=== PATIENT | female | born 2005 ===

== ENCOUNTER 2025-07-24 14:58 | Inpatient (IN) ==
[2025-07-24] MEDS: LACTATED RINGER'S 1,000 ML IV PRN (16:25)
[2025-07-24 16:32] LABS: Appearance Urine Clear (Clear); Bacteria Urine Automated None Seen (None Seen); Cast Urine Automated 0-2 /lpf (0-2); Epithelial Cell Urine Auto 0-2 /hpf (0-2); Glucose Urine UA Negative (Negative); RBC Urine Automated 0-2 /hpf (0-2); WBC Urine Automated 0-5 /hpf (0-5)
[2025-07-24 16:39] LABS: Hematocrit (blood only) 33.4 % (37.0-47.0); Hemoglobin 11.5 g/dL (12.0-16.0); Immature Granulocytes # (auto) 0.04 K/uL (0.01-0.20); Immature Granulocytes % (auto) 0.5 %; Mean Corpuscular Hemoglobin 32.2 pg (25.0-34.0); Mean Corpuscular Volume 93.6 fL (80.0-100.0); Platelet Count 106 K/uL (130-400); RDW Standard Deviation 51.8 fL (36.4-46.3); Red Blood Count 3.57 M/uL (4.20-5.40); White Blood Count 8.85 K/ul (4.8-10.8)
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
[2025-07-24 17:27] LABS: Amphetamines+Metham, Urine Neg (Neg); MDMA (Ecstacy), Urine Neg (Neg); Marijuana, Urine Neg (Neg)
[2025-07-24] MEDS ORDERED: ACETAMINOPHEN 1,000 MG/100 ML VIAL IV PRN (19:19)
[2025-07-24] MEDS: ACETAMINOPHEN 1000 MG/100 ML IV IV ONE (19:23)
[2025-07-24] MEDS ORDERED: OXYTOCIN 30 UNITS/NSS 30 UNITS/500 ML BAG IV PRN (21:14)
[2025-07-24] MEDS ORDERED: LIDOCAINE 1% LOCAL 20 ML VIAL INFIL PRN (21:14)
[2025-07-24] MEDS: OXYTOCIN 30 UNITS/NSS 30 UNITS/500 ML BAG IV PRN (23:10)
[2025-07-24] MEDS ORDERED: ROPIVACAINE 0.5% PF 5 MG/ML 20 ML VIAL EPI PRN (23:36)
[2025-07-24] MEDS ORDERED: diphenhydrAMINE 50 MG/ML VIAL IV PRN (23:36)
[2025-07-24] MEDS ORDERED: LIDOCAINE 2% MPF LOCAL 5 ML VIAL EPI PRN (23:36)
[2025-07-24] MEDS ORDERED: NALOXONE HCL 1 MG in SODIUM CHLORIDE 0.9% 1,000 ML IV PRN (23:36)
[2025-07-24] MEDS ORDERED: NALOXONE HCL 0.4 MG/1 ML VIAL/CARP IV PRN (23:36)
[2025-07-24] MEDS ORDERED: fentANYL 2 MCG/ML BUPIVacaine 0.125%-NSS 100ML BAG EPI PRN (23:36)
[2025-07-24] MEDS ORDERED: NALBUPHINE HCL INJ 10 MG/ML AMP IV PRN (23:36)
[2025-07-24] MEDS ORDERED: BUPIVACAINE 0.25% PF 30 ML VIAL EPI PRN (23:36)
[2025-07-24] MEDS ORDERED: SODIUM CHLORIDE 0.9% PF INJ 10 ML VIAL EPI PRN (23:36)
[2025-07-24] MEDS ORDERED: ONDANSETRON INJ 2 MG/ML 2 ML VIAL IV PRN (23:36)
--- NOTE | 2025-07-24 23:36 | Anesthesiology Consultation ---
Date of Service July 24, 2025 Assessment & Plan ASA ASA2 Proposed Anesthesia Anesthesia Type: Labor Epidural Risk / Benefits Reviewed With: PT / POA / Parent / Guardian, Accepts Plan and Informed Consent Obtained History Height/Weight Height: 5 ft 4 in Weight: 64.41 kg Allergies Allergy/AdvReac Type Severity Reaction Status Date / Time Penicillins Allergy Unknown Verified 07/24/25 17:16 Medications Home Medications Medication Instructions Recorded Confirmed Last Taken valacyclovir 500 mg tablet 500 mg PO BID 07/24/25 07/24/25 07/24/25 07:00 (Valtrex) Active Medications Generic Name Dose Route Start Last Admin Trade Name Freq PRN Reason Stop Dose Admin Lactated Ringer's 1,000 mls @ 125 mls/hr 07/24/25 16:11 07/24/25 23:30 Lr IV 07/27/25 16:10 125 mls/hr .Q8H PRN Administration L&D Protocol Protocol Cefazolin Sodium 2,000 mg in 15 mls @ 3.75 mls/min 07/24/25 17:15 07/24/25 17:47 Ancef 2000mg IV 08/03/25 17:14 3.75 mls/min Q8H JEAN-CLAUDE Administration Oxytocin 30 units in 500 mls @ 2 mls/hr 07/24/25 22:48 07/24/25 23:10 Pitocin 30 Units/Nss IV 07/26/25 22:47 0.12 units/hr .Q24H PRN 2 mls/hr Labor Induction/Augmentation Administration Protocol 0.12 UNITS/HR Past Medical History Medical History PTSD (post-traumatic stress disorder) from prior relationship- does not have formal dx but feels she has trouble dealing from time to time. Pt states " no time due to moving, , new job and having toddler" SAB (spontaneous ) 2023 Anemia transfusion "few months ago" Heart murmur dx at 6 years old, "heart attack" due to ADHD medications" "hole was monitored, but never repaired" depression no medications- feels it was due to her living situation with FOB #1 Anxiety took medications prior to prengancy HSV (herpes simplex virus) infection hx of HSV- last outbreak 2023, takes valtrex Gestational hypertension With first in 2023 Exercise / Class Metabolic Activity II 4-5 Yardwork/Stairs/Walk up hill Past Family History Family History Other No history of previous surgery No known health problems Past Surgical History Surgical History [place] teeth removed at age 17 Past Anesthesia History No Hx of Anesthesia Complications and No Family Hx of Anesthesia Complications History of PONV No Hx of PONV and No Hx of Motion Sickness Social History Smoking Status: Never smoker Hx Alcohol Use: No Hx Substance Use: No substance use type: does not use Review of Systems denies fever/cough/ colds/ chest pain/ SOB/ FLIP denies FLIP Physical Exam Vital Signs Last Vital Signs Temp 36.7 C 07/24/25 22:50 Pulse 85 07/25/25 00:08 Resp 18 07/24/25 23:45 BP 117/65 07/25/25 00:08 Pulse Ox 96 07/25/25 00:08 O2 Del Method Room Air 07/25/25 00:00 ENMT Mouth: no TMJ abnormality and no dentition abnormality Thyromental Distance: > or= 3.5 Finger Breadths Mallampati Class: II Neck neck extension not limited Respiratory normal respiratory effort; no respiratory distress Auscultation: lungs clear to auscultation bilaterally Cardiovascular Rate/Rhythm: regular rate and regular rhythm Neurologic moves all extremities Psychiatric Orientation: alert and oriented x 3 Testing Laboratory Results 07/24/25 16:20 Urine Color Yellow 07/24/25 16:15 Urine Appearance Clear (Clear) 07/24/25 16:15 Urine pH 6.5 (4.5-7.5) 07/24/25 16:15 Ur Specific [place] 1.023 (1.000-1.030) 07/24/25 16:15 Urine Protein Trace (Negative) H 07/24/25 16:15 Urine Glucose (UA) Negative (Negative) 07/24/25 16:15 Urine Ketones Negative (Negative) 07/24/25 16:15 Urine Nitrite Negative (Negative) 07/24/25 16:15 Ur Leukocyte Esterase Trace (Negative) H 07/24/25 16:15 Urine WBC (Auto) 0-5 /hpf (0-5) 07/24/25 16:15 Urine RBC (Auto) 0-2 /hpf (0-2) 07/24/25 16:15 U Hyaline Cast (Auto) 0-2 /lpf (0-2) 07/24/25 16:15 U Epithel Cells (Auto) 0-2 /hpf (0-2) 07/24/25 16:15 Urine Bacteria (Auto) None Seen (None Seen) 07/24/25 16:15
[2025-07-25] MEDS ORDERED: General Order Problem(s) SCH
[2025-07-25] MEDS: SODIUM CHLORIDE 0.9% PF INJ 10 ML VIAL ONE ×2 (00:05→02:15)
[2025-07-25] MEDS: fentANYL 2 MCG/ML BUPIVacaine 0.125%-NSS 100ML BAG ONE ×2 (00:08→02:16)
[2025-07-25] MEDS: LIDOCAINE 2%/EPINEPHRINE 1:200,000 20 ML PF ONE (00:10)
[2025-07-25] MEDS: BUPIVACAINE 0.25% PF 30 ML VIAL ONE (00:11)
[2025-07-25] MEDS: BUPIVACAINE 0.25% PF 30 ML VIAL EPI STA (00:11)
[2025-07-25] MEDS: SODIUM CHLORIDE 0.9% PF INJ 10 ML VIAL EPI STA (00:18)
[2025-07-25] MEDS: LIDOCAINE 2%/EPINEPHRINE 1:200,000 20 ML PF EPI STA (00:19)
[2025-07-25] MEDS: METHYLERGONOVINE MALEATE 0.2 MG/ML AMP IM ONE (01:42)
--- NOTE | 2025-07-25 01:58 | Delivery Summary ---
Vaginal Delivery Summary Date of Service July 25, 2025 Vaginal Delivery Summary Patient is a 20-year-old 2 para 2 admitted at 38 weeks gestation. On admission she was thought to have pyelonephritis with systemic symptoms of infection. Cath urine was taken for DIRECTOR OF SALES. 2 blood cultures were taken. She was started on Ancef IV. Given dose of Tylenol. Her initial pelvic exam was a vertex -3 cervix posterior firm 50% effaced. Patient spontaneously ruptured her membranes. AmniSure positive. She went into spontaneous labor. When she was about 4 cm she was given epidural for pain control. After that she went to full dilatation in about 2 hours. Pushed about 4 times. Delivered a live female via direct occiput anterior position over an intact perineum. was suctioned through the mouth and the nose. Shoulders were delivered without difficulty. Cord was allowed to pulse for 1 full minute. Cord was then clamped cut by the father. Cord blood was taken. With IV Pitocin running the placenta was removed intact. Inspection of the perineum revealed no lacerations. However there was a right sided periurethral laceration. This was repaired with a running 3-0 chromic. Bleeding was controlled with IV Pitocin and IM Methergine. Quantitative blood loss was 410 ml. Patient tolerated delivery well.
[2025-07-25] MEDS ORDERED: ACETAMINOPHEN W/CODEINE #3 1 TAB PO PRN (01:59)
[2025-07-25] MEDS ORDERED: HYDROCORTISONE ACETATE 25 MG SUPP PR PRN (01:59)
[2025-07-25] MEDS ORDERED: OXYTOCIN 30 UNITS/NSS 30 UNITS/500 ML BAG IV PRN (01:59)
[2025-07-25] MEDS: DIPHTHER/TETAN/PERTUS Vaccine (Tdap, Adol/Adult) 0.5mL IM ONE (02:14)
[2025-07-25 08:16] LABS: Creatinine Clr Calc Pharmacy 96.1 ml/min
--- NOTE | 2025-07-25 09:09 | Anesthesia Procedure Note ---
Date of Service July 25, 2025 Anesthesia Post Epidural Note Vital Signs Vital Signs: Temp Pulse Resp BP Pulse Ox O2 Del Method 38.3 C H 73 18 123/79 96 Room Air 07/25/25 05:09 07/25/25 05:09 07/25/25 05:09 07/25/25 05:09 07/25/25 05:09 07/25/25 05:09 Pain Intensity Lower Abdomen: Pain Intensity: 8 Notes Mental Status: alert / awake / arousable and participated in evaluation Nausea / Vomiting: adequately controlled Pain: adequately controlled Airway Patency, RR, SpO2: stable & adequate BP & HR: stable & adequate Hydration State: stable & adequate Neuraxial Anesthesia: was administered and sensory block is resolving Anesthetic Complications: no major complications apparent Epidural: Removed without complications and With tip intact
--- NOTE | 2025-07-25 09:54 | Obstetrical Progress Note ---
Date of Service July 25, 2025 Subjective Ambulation: ambulating normally Voiding: no voiding problems Passing Gas:: Yes Diet Tolerance:: regular diet Lochia:: Small Feeding Type:: bottle feeding Current Pain Level(1-10): 0 doing well Physical Exam Constitutional WD/WN, vitals as above Gastrointestinal (Abdomen) Inspection/Auscultation: abdomen normal to inspection Musculoskeletal Extremities: extremities normal to inspection Skin no rashes, warm and dry Neurologic patellar DTR's 2+ bilat, sensation intact Psychiatric A+Ox3, euthymic affect Results & Data Vital Signs (Past 12 Hours) Vital Signs Temp Pulse Pulse Resp BP BP Pulse Ox 07/25/25 05:09 38.3 C H 73 18 123/79 96 07/25/25 03:42 76 126/74 07/25/25 03:28 75 128/76 07/25/25 03:13 72 144/89 H 07/25/25 02:58 71 158/88 H 07/25/25 02:43 72 166/77 H 07/25/25 02:30 18 07/25/25 02:30 36.8 C 18 07/25/25 02:13 82 117/56 L 07/25/25 01:58 82 120/59 L 07/25/25 01:45 100 07/25/25 01:42 89 107/68 07/25/25 01:34 95 H 84 L 07/25/25 01:30 18 07/25/25 01:30 18 07/25/25 01:29 83 100 07/25/25 01:28 74 102/59 L 07/25/25 01:24 83 100 07/25/25 01:19 75 98 07/25/25 01:14 74 101/59 L 98 07/25/25 01:09 68 98 07/25/25 01:04 75 98 07/25/25 00:59 71 98 07/25/25 00:57 76 99/55 L 07/25/25 00:54 74 99 07/25/25 00:49 83 100 07/25/25 00:44 86 99 07/25/25 00:43 70 101/66 07/25/25 00:42 90 89/59 L 07/25/25 00:39 76 96 07/25/25 00:35 18 07/25/25 00:35 36.8 C 18 07/25/25 00:34 76 98 07/25/25 00:29 73 99/54 L 97 07/25/25 00:23 78 95 07/25/25 00:18 76 96 07/25/25 00:13 77 98 07/25/25 00:12 81 108/60 07/25/25 00:10 90 108/58 L 07/25/25 00:08 85 117/65 96 07/25/25 00:07 84 112/66 07/25/25 00:06 87 110/69 07/25/25 00:04 89 115/73 07/25/25 00:03 91 H 97 07/25/25 00:02 96 H 110/68 07/25/25 00:00 07/24/25 23:58 88 96 07/24/25 23:45 91 H 18 124/74 07/24/25 22:50 36.7 C 86 18 108/56 L Pulse Ox O2 Del Method O2 Del Method 07/25/25 05:09 Room Air 07/25/25 03:42 07/25/25 03:28 07/25/25 03:13 07/25/25 02:58 07/25/25 02:43 07/25/25 02:30 07/25/25 02:30 07/25/25 02:13 07/25/25 01:58 07/25/25 01:45 07/25/25 01:42 07/25/25 01:34 07/25/25 01:30 07/25/25 01:30 07/25/25 01:29 07/25/25 01:28 07/25/25 01:24 07/25/25 01:19 07/25/25 01:14 07/25/25 01:09 07/25/25 01:04 07/25/25 00:59 07/25/25 00:57 07/25/25 00:54 07/25/25 00:49 07/25/25 00:44 07/25/25 00:43 07/25/25 00:42 07/25/25 00:39 07/25/25 00:35 07/25/25 00:35 07/25/25 00:34 07/25/25 00:29 07/25/25 00:23 07/25/25 00:18 07/25/25 00:13 07/25/25 00:12 07/25/25 00:10 07/25/25 00:08 07/25/25 00:07 07/25/25 00:06 07/25/25 00:04 07/25/25 00:03 07/25/25 00:02 07/25/25 00:00 96 Room Air 07/24/25 23:58 07/24/25 23:45 07/24/25 22:50 Laboratory Results Laboratory Results - last 72 hr 07/24/25 07/24/25 07/24/25 16:15 16:20 16:24 WBC 8.85 RBC 3.57 L Hgb 11.5 L Hct 33.4 L MCV 93.6 MCH 32.2 MCHC 34.4 RDW Std Deviation 51.8 H RDW Coeff of [place] 14.9 H Plt Count 106 L MPV 12.8 H Immature Gran % (Auto) 0.5 Neut % (Auto) 87.3 Lymph % (Auto) 3.6 [place] % (Auto) 8.2 Eos % (Auto) 0.1 Baso % (Auto) 0.3 Neut # (Auto) 7.72 H Lymph # (Auto) 0.32 L [place] # (Auto) 0.73 H Eos # (Auto) 0.01 Baso # (Auto) 0.03 Immature Gran # (Auto) 0.04 Creatinine Est Cr Clr Drug Dosing eGFR Urine Color Yellow Urine Appearance Clear Urine pH 6.5 Ur Specific [place] 1.023 Urine Protein Trace H Urine Glucose (UA) Negative Urine Ketones Negative Urine Blood Negative Urine Nitrite Negative Urine Bilirubin Negative Urine Urobilinogen Negative Ur Leukocyte Esterase Trace H Urine WBC (Auto) 0-5 Urine RBC (Auto) 0-2 U Hyaline Cast (Auto) 0-2 U Epithel Cells (Auto) 0-2 Urine Bacteria (Auto) None Seen Urine Opiates Screen Neg Ur Methadone, Qual Neg Urine Fentanyl Screen Neg Urine Barbiturates Neg Ur Phencyclidine (PCP) Neg U Amphetamin/Meth Scrn Neg MDMA (Ecstasy) Screen Neg U Benzodiazepines Scrn Neg Ur Cocaine Metabolite Neg U Marijuana (THC) Screen Neg Treponema pallidum Ab Negative 07/25/25 07:07 WBC RBC Hgb Hct MCV MCH MCHC RDW Std Deviation RDW Coeff of [place] Plt Count MPV Immature Gran % (Auto) Neut % (Auto) Lymph % (Auto) [place] % (Auto) Eos % (Auto) Baso % (Auto) Neut # (Auto) Lymph # (Auto) [place] # (Auto) Eos # (Auto) Baso # (Auto) Immature Gran # (Auto) Creatinine 0.80 Est Cr Clr Drug Dosing 96.1 eGFR 107.44 Urine Color Urine Appearance Urine pH Ur Specific [place] Urine Protein Urine Glucose (UA) Urine Ketones Urine Blood Urine Nitrite Urine Bilirubin Urine Urobilinogen Ur Leukocyte Esterase Urine WBC (Auto) Urine RBC (Auto) U Hyaline Cast (Auto) U Epithel Cells (Auto) Urine Bacteria (Auto) Urine Opiates Screen Ur Methadone, Qual Urine Fentanyl Screen Urine Barbiturates Ur Phencyclidine (PCP) U Amphetamin/Meth Scrn MDMA (Ecstasy) Screen U Benzodiazepines Scrn Ur Cocaine Metabolite U Marijuana (THC) Screen Treponema pallidum Ab
[2025-07-25] MEDS: PRENATAL VITAMIN 1 TAB PO SCH (10:13)
[2025-07-25] MEDS: DOCUSATE SODIUM 100 MG CAP PO SCH (10:13)
[2025-07-25] MEDS: ACETAMINOPHEN 325 MG TAB PO PRN (10:13)
[2025-07-25] MEDS: BENZOCAINE 20% SPRY 85 APPLN/85 GM CAN EXT PRN (10:14)
[2025-07-25 11:54] VITALS: O2SAT 97
[2025-07-25 15:58] LABS: Influenza A virus by PCR Negative (Neg); Influenza B virus by PCR Negative (Neg); SARS CoV2 RNA(COVID-19) Ceph POSITIVE (Negative)
[2025-07-25] MEDS: IBUPROFEN 600 MG TAB PO PRN (20:01)
[2025-07-26 07:41] LABS: Hematocrit (blood only) 37.3 % (37.0-47.0); Hemoglobin 12.2 g/dL (12.0-16.0); Mean Corpuscular Hemoglobin 31.9 pg (25.0-34.0); Mean Corpuscular Volume 97.6 fL (80.0-100.0); Platelet Count 108 K/uL (130-400); RDW Standard Deviation 55.8 fL (36.4-46.3); Red Blood Count 3.82 M/uL (4.20-5.40); White Blood Count 5.11 K/ul (4.8-10.8)
[2025-07-26 07:53] LABS: Creatinine Clr Calc Pharmacy 108.2 ml/min
[2025-07-26 08:54] VITALS: BP 113/73; PULSE 59; RESP 18; TEMP 97.2
--- NOTE | 2025-07-26 09:55 | Obstetrical Progress Note ---
Date of Service July 26, 2025 Assessment & Plan (1) , delivered: discharged home (2) COVID-19 affecting in third trimester: discharged home with follow up with PCP Subjective Ambulation: ambulating normally Voiding: no voiding problems Passing Gas:: Yes Diet Tolerance:: regular diet Feeding Type:: breast feeding Current Pain Level(1-10): 0 doing well. no SOB or difficulty with breathing Physical Exam Constitutional WD/WN, vitals as above Gastrointestinal (Abdomen) Inspection/Auscultation: abdomen normal to inspection abdomen soft and non-tender. fudus firm below U. Musculoskeletal Extremities: extremities normal to inspection Skin no rashes, warm and dry Neurologic patellar DTR's 2+ bilat, sensation intact Psychiatric A+Ox3, euthymic affect Results & Data Vital Signs (Past 12 Hours) Vital Signs Temp Pulse Resp BP Pulse Ox O2 Del Method 07/26/25 08:20 36.2 C L 59 L 18 113/73 97 Room Air 07/26/25 02:23 36.5 C 55 L 16 112/68 97 Room Air Laboratory Results 07/24/25 07/24/25 07/24/25 16:15 16:20 16:24 WBC 8.85 RBC 3.57 L Hgb 11.5 L Hct 33.4 L MCV 93.6 MCH 32.2 MCHC 34.4 RDW Std Deviation 51.8 H RDW Coeff of [place] 14.9 H Plt Count 106 L MPV 12.8 H Immature Gran % (Auto) 0.5 Neut % (Auto) 87.3 Lymph % (Auto) 3.6 [place] % (Auto) 8.2 Eos % (Auto) 0.1 Baso % (Auto) 0.3 Neut # (Auto) 7.72 H Lymph # (Auto) 0.32 L [place] # (Auto) 0.73 H Eos # (Auto) 0.01 Baso # (Auto) 0.03 Immature Gran # (Auto) 0.04 Creatinine Est Cr Clr Drug Dosing eGFR Urine Color Yellow Urine Appearance Clear Urine pH 6.5 Ur Specific [place] 1.023 Urine Protein Trace H Urine Glucose (UA) Negative Urine Ketones Negative Urine Blood Negative Urine Nitrite Negative Urine Bilirubin Negative Urine Urobilinogen Negative Ur Leukocyte Esterase Trace H Urine WBC (Auto) 0-5 Urine RBC (Auto) 0-2 U Hyaline Cast (Auto) 0-2 U Epithel Cells (Auto) 0-2 Urine Bacteria (Auto) None Seen Urine Opiates Screen Neg Ur Methadone, Qual Neg Urine Fentanyl Screen Neg Urine Barbiturates Neg Ur Phencyclidine (PCP) Neg U Amphetamin/Meth Scrn Neg MDMA (Ecstasy) Screen Neg U Benzodiazepines Scrn Neg Ur Cocaine Metabolite Neg U Marijuana (THC) Screen Neg Treponema pallidum Ab Negative SARS-CoV-2 (PCR) Influenza A (RT-PCR) Influenza Type A (PCR) Influenza B (RT-PCR) Influenza Type B (PCR) RSV (RT-PCR) 07/25/25 07/25/25 07/25/25 07:07 09:55 09:56 WBC RBC Hgb Hct MCV MCH MCHC RDW Std Deviation RDW Coeff of [place] Plt Count MPV Immature Gran % (Auto) Neut % (Auto) Lymph % (Auto) [place] % (Auto) Eos % (Auto) Baso % (Auto) Neut # (Auto) Lymph # (Auto) [place] # (Auto) Eos # (Auto) Baso # (Auto) Immature Gran # (Auto) Creatinine 0.80 Est Cr Clr Drug Dosing 96.1 eGFR 107.44 Urine Color Urine Appearance Urine pH Ur Specific [place] Urine Protein Urine Glucose (UA) Urine Ketones Urine Blood Urine Nitrite Urine Bilirubin Urine Urobilinogen Ur Leukocyte Esterase Urine WBC (Auto) Urine RBC (Auto) U Hyaline Cast (Auto) U Epithel Cells (Auto) Urine Bacteria (Auto) Urine Opiates Screen Ur Methadone, Qual Urine Fentanyl Screen Urine Barbiturates Ur Phencyclidine (PCP) U Amphetamin/Meth Scrn MDMA (Ecstasy) Screen U Benzodiazepines Scrn Ur Cocaine Metabolite U Marijuana (THC) Screen Treponema pallidum Ab SARS-CoV-2 (PCR) POSITIVE A Influenza A (RT-PCR) Cancelled Influenza Type A (PCR) Negative Influenza B (RT-PCR) Cancelled Influenza Type B (PCR) Negative RSV (RT-PCR) Negative 07/26/25 07:15 WBC 5.11 RBC 3.82 L Hgb 12.2 Hct 37.3 MCV 97.6 MCH 31.9 MCHC 32.7 RDW Std Deviation 55.8 H RDW Coeff of [place] 15.6 H Plt Count 108 L MPV 13.0 H Immature Gran % (Auto) Neut % (Auto) Lymph % (Auto) [place] % (Auto) Eos % (Auto) Baso % (Auto) Neut # (Auto) Lymph # (Auto) [place] # (Auto) Eos # (Auto) Baso # (Auto) Immature Gran # (Auto) Creatinine 0.71 Est Cr Clr Drug Dosing 108.2 eGFR 123.98 Urine Color Urine Appearance Urine pH Ur Specific [place] Urine Protein Urine Glucose (UA) Urine Ketones Urine Blood Urine Nitrite Urine Bilirubin Urine Urobilinogen Ur Leukocyte Esterase Urine WBC (Auto) Urine RBC (Auto) U Hyaline Cast (Auto) U Epithel Cells (Auto) Urine Bacteria (Auto) Urine Opiates Screen Ur Methadone, Qual Urine Fentanyl Screen Urine Barbiturates Ur Phencyclidine (PCP) U Amphetamin/Meth Scrn MDMA (Ecstasy) Screen U Benzodiazepines Scrn Ur Cocaine Metabolite U Marijuana (THC) Screen Treponema pallidum Ab SARS-CoV-2 (PCR) Influenza A (RT-PCR) Influenza Type A (PCR) Influenza B (RT-PCR) Influenza Type B (PCR) RSV (RT-PCR)
== END 2025-07-26 13:21 | disposition home or self-care (01) | DRG 805 ==
LOC: OPB 14:58 → 4S1 15:02 → 4E2 07-25 05:00 → 4E1 07-25 18:27